=== PATIENT | female | born 1930 | race Caucasian/White ===

== ENCOUNTER 2017-12-29 10:24 | Emergency (ER) | payer MEDICAID ==
[~2017-12-29] VITALS: Ht 165.1 cm; Wt 68.0 kg
--- NOTE | 2017-12-29 10:39 | NUR ---
Dr Shanks at the bedside for MSE.
[2017-12-29 11:16] LABS: BASOPHILS % (AUTO) 0.4 % (0.0-2.0); EOSINOPHILS # (AUTO) 0.1 K/uL (0.0-0.7); HEMATOCRIT 40.9 % (31.2-41.9); HEMOGLOBIN 13.9 g/dL (10.9-14.3); LYMPHOCYTES # (AUTO) 0.9 K/uL (20.0-40.0); LYMPHOCYTES % (AUTO) 8.1 % (20.5-51.5); MEAN CORPUSCULAR HEMOGLOBIN 30.1 uug (24.7-32.8); MEAN CORPUSCULAR HGB CONC 34 g/dL (32.3-35.6); MEAN CORPUSCULAR VOLUME 88.8 fL (75.5-95.3); MONOCYTES # (AUTO) 0.6 K/uL (2.0-10.0); MONOCYTES % (AUTO) 5.5 % (0.0-11.0); NEUTROPHILS # (AUTO) 9.5 K/uL (1.8-8.9); PLATELET COUNT (AUTO) 231 K/uL (179-408); WHITE BLOOD COUNT (AUTO) 11.1 K/uL (3.8-11.8)
[2017-12-29 11:22] LABS: CARBON DIOXIDE 27 mmol/L (21-32); CHLORIDE 102 mmol/L (98-107); CREATININE 0.8 mg/dL (0.6-1.3); GLUCOSE 132 mg/dL (74-106); POTASSIUM 3.6 mmol/L (3.5-5.1); UREA NITROGEN, BLOOD 17 mg/dL (7-18)
[2017-12-29 11:23] LABS: ABG BASE EXCESS 2.3 mmol/L; ABG HCO3 25.4 mmol/L; ABG PCO2 34.8 mmHg (35.0-45.0); ABG PH 7.481 (7.350-7.450); ABG PO2 48.8 mmHg (75.0-100.0); ABG SITE RIGHT RADIAL; ABG TOTAL HEMOGLOBIN 13.8 G/dL (12.0-16.0); COHb 1.5 % (0.5-1.5); MetHb 0.1 % (0.0-1.5); O2Hb 86.2 % (94.0-97.0); VENT MODE ROOM AIR
--- NOTE | 2017-12-29 11:30 | NUR ---
Pt out of ER for CT.
[2017-12-29 11:34] LABS: ALANINE AMINOTRANSFERASE 31 U/L (14-59); ALKALINE PHOSPHATASE 93 U/L (50-136); ASPARTATE AMINOTRANSFERASE 28 U/L (15-37); BILIRUBIN,DIRECT 0.2 mg/dL (0.0-0.2); BILIRUBIN,TOTAL 1.2 mg/dL (0.2-1.0); TOTAL PROTEIN, SERUM 7.3 g/dL (6.4-8.2)
[2017-12-29] MEDS ORDERED: CEFTRIAXONE 1 G in IV DEXTROSE 5% 50 ML IV ONE (12:00)
[2017-12-29] MEDS ORDERED: AZITHROMYCIN IV 500 MG in IV DEXTROSE 5% 250 ML IV ONE (12:00)
--- NOTE | 2017-12-29 12:00 | NUR ---
PT'S GRANDSON REFUSED TO SIGN CONSENT TO IV CONTRAST, DR FLORES AWARE.
[2017-12-29] MEDS ORDERED: AZITHROMYCIN 500 MG VIAL IV ONE (12:07)
[2017-12-29] MEDS ORDERED: CEFTRIAXONE 1 G VIAL ONE (12:08)
--- NOTE | 2017-12-29 12:27 | NUR ---
DR FLORES SPOKE TO PT RE CTA AND VERBAL AND WRITTEN EXPLANATION PROVIDED TO MULTIPLE FAMILY MEMBERS. PT'S FAMILY MEMBER STATING THEY NEED LONGER TIME TO TALK ABOUT CTA AMONG THEMSELVES. PT IS RESTING IN BED.
--- NOTE | 2017-12-29 13:02 | NUR ---
PT'S GRANDSON SIGNED CONSENT FOR CT W/ IV CONTRAST, PLACED IN THE CHART.
[2017-12-29] MEDS ORDERED: IV NORMAL SALINE 100 ML ONE (13:06)
[2017-12-29] MEDS ORDERED: IOHEXOL 350 100 ML INFUS..BTL ONE (13:06)
[2017-12-29] MEDS ORDERED: SWABABLE VALVE TRANSFER SET EA MC ONE (13:06)
--- NOTE | 2017-12-29 13:20 | NUR ---
PT OUT OF ER FOR CTA.
--- NOTE | 2017-12-29 13:43 | NUR ---
PT BACK FROM CT, RESTING IN BED, FAMILY AT THE BEDSIDE.
--- NOTE | 2017-12-29 14:30 | NUR ---
Call placed to [facility], Dr. Belcher has been paged.
[2017-12-29] MEDS ORDERED: ALBUTEROL SULFATE 2.5 MG/3 ML NEBU NEB PRN (14:45)
[2017-12-29] MEDS ORDERED: ONDANSETRON 4 MG/2 ML VIAL IV PRN (14:45)
[2017-12-29] MEDS ORDERED: ACETAMINOPHEN 325 MG TABLET PO PRN (14:45)
[2017-12-29] MEDS ORDERED: IPRATROPIUM BROMIDE 0.5 MG/2.5 ML NEBU NEB PRN (14:45)
[2017-12-29] MEDS ORDERED: IPRATROPIUM BROMIDE 0.5 MG/2.5 ML NEBU NEB SCH (15:30)
[2017-12-29] MEDS ORDERED: ALBUTEROL SULFATE 2.5 MG/3 ML NEBU NEB SCH (15:30)
--- NOTE | 2017-12-29 15:43 | NUR ---
Patient and pt's family does not wish to proceed with medical care recommended by ( SANDRA ). Patient and pt's famiy given information related to possible complications, up to and including , which could occur as a result of leaving the hospital at this time. Patient and pt's family verbalize understanding of risks involved due to leaving against medical advice. Patient's son and grandson signed AMA form.
[2017-12-29] MEDS ORDERED: ASPIRIN EC 81 MG TABLET.DR PO SCH (15:45)
[2017-12-29] MEDS ORDERED: PANTOPRAZOLE SODIUM 40 MG TABLET.DR PO SCH (15:45)
[2017-12-29] MEDS ORDERED: AMLODIPINE 2.5 MG TABLET PO SCH (15:45)
[2017-12-29 15:46] VITALS: BP 140/80
[2017-12-30] MEDS ORDERED: CEFTRIAXONE 1 G in IV DEXTROSE 5% 50 ML IV SCH (12:00)
[2017-12-30] MEDS ORDERED: AZITHROMYCIN IV 500 MG in IV DEXTROSE 5% 250 ML IV SCH (12:30)
== END 2017-12-29 15:46 | disposition left against medical advice (07) ==
LOC: ER 10:24
DX: R09.02 Hypoxemia (principal); J18.9 Pneumonia, unspecified organism; I10 Essential (primary) hypertension; K44.9 Diaphragmatic hernia without obstruction or gangrene; K76.89 Other specified diseases of liver; M48.52XA Collapsed vertebra, not elsewhere classified, cervical region, initial encounter for fracture; W19.XXXA Unspecified fall, initial encounter; Y92.89 Other specified places as the place of occurrence of the external cause; Y93.89 Activity, other specified; Y99.8 Other external cause status
CPT/HCPCS: 36415; 36600; 70450; 71045; 71275; 72110; 80048; 80076; 83880; 84484; 85025; 85730; 87040; 93005; 96365; 96368; 99285; A4663; J0456; J0696; J3490 ×2; J7050; Q9967; 70030-TC

== ENCOUNTER 2017-12-31 15:34 | Inpatient (IN) | payer MEDICAID ==
[~2017-12-31] VITALS: Ht 152.4 cm; Wt 49.9 kg
[2017-12-31] MEDS ORDERED: CEFTRIAXONE 1 G in IV DEXTROSE 5% 50 ML IV ONE (17:15)
[2017-12-31] MEDS ORDERED: IV NORMAL SALINE 1000 ML BAG IV ONE (17:15)
[2017-12-31] MEDS ORDERED: AZITHROMYCIN IV 500 MG in IV DEXTROSE 5% 250 ML IV ONE (17:15)
[2017-12-31] MEDS ORDERED: CEFTRIAXONE 1 G VIAL ONE (17:33)
[2017-12-31 17:53] LABS: BASOPHILS % (AUTO) 0.5 % (0.0-2.0); EOSINOPHILS # (AUTO) 0.2 K/uL (0.0-0.7); EOSINOPHILS % (AUTO) 2.8 % (0.0-7.0); HEMOGLOBIN 13.3 g/dL (10.9-14.3); LYMPHOCYTES # (AUTO) 1.2 K/uL (20.0-40.0); LYMPHOCYTES % (AUTO) 15.6 % (20.5-51.5); MEAN CORPUSCULAR HGB CONC 34 g/dL (32.3-35.6); MEAN CORPUSCULAR VOLUME 87.9 fL (75.5-95.3); MONOCYTES # (AUTO) 0.9 K/uL (2.0-10.0); MONOCYTES % (AUTO) 11.6 % (0.0-11.0); NEUTROPHILS # (AUTO) 5.5 K/uL (1.8-8.9); NEUTROPHILS % (AUTO) 69.5 % (38.5-71.5); PLATELET COUNT (AUTO) 208 K/uL (179-408); RED BLOOD CELL COUNT(AUTO) 4.44 MIL/uL (3.63-4.92)
[2017-12-31 18:08] LABS: CARBON DIOXIDE 29 mmol/L (21-32); CHLORIDE 100 mmol/L (98-107); CREATININE 0.7 mg/dL (0.6-1.3); GLUCOSE 116 mg/dL (74-106); POTASSIUM 3.5 mmol/L (3.5-5.1); UREA NITROGEN, BLOOD 17 mg/dL (7-18)
[2017-12-31 18:21] LABS: ALANINE AMINOTRANSFERASE 29 U/L (14-59); ALKALINE PHOSPHATASE 82 U/L (50-136); ASPARTATE AMINOTRANSFERASE 26 U/L (15-37); BILIRUBIN,DIRECT 0.3 mg/dL (0.0-0.2); BILIRUBIN,TOTAL 1.5 mg/dL (0.2-1.0); TOTAL PROTEIN, SERUM 7.7 g/dL (6.4-8.2)
[2017-12-31] MEDS ORDERED: AZITHROMYCIN 500 MG VIAL IV ONE (18:38)
--- NOTE | 2017-12-31 19:44 | NUR ---
Patient's O2 Saturation 83%, placed patient on 2L O2 via nasal cannula. MD notified.
[2017-12-31] MEDS ORDERED: FUROSEMIDE 20 MG/2 ML VIAL IV ONE (20:15)
[2017-12-31] MEDS ORDERED: FUROSEMIDE 20 MG/2 ML VIAL ONE (20:20)
--- NOTE | 2017-12-31 20:25 | NUR ---
Dr. Grewal on panel call with Dr. Belcher.
[2017-12-31 20:56] LABS: *BILIRUBIN,URIN NEGATIVE (NEGATIVE); *BLOOD, URINE 2+ (NEGATIVE); *CLARITY,URINE SLIGHTLY CLOUDY (CLEAR); *COLOR,URINE YELLOW (YELLOW); *KETONES,URINE TRACE (NEGATIVE); *PROTEIN,URINE TRACE (NEGATIVE); *UROBILINOGEN,URINE 0.2 E.U./dl (NORMAL); LEUKOCYTE ESTERASE ,URINE NEGATIVE (NEGATIVE); NITRITE, URINE NEGATIVE (NEGATIVE); PH,URINE 5.5 (5.0-8.0); UGLUCOSE NEGATIVE (NEGATIVE)
[2017-12-31 21:07] LABS: BACTERIA,URINE NONE SEEN /HPF (NONE SEEN); SQUAMOUS EPITHELIAL CELL,UR FEW /HPF (NONE SEEN); WBC,URINE 0-3 /HPF (0-3)
--- NOTE | 2017-12-31 21:32 | NUR ---
Passed report to Fredy CRESPO Tele.
--- NOTE | 2017-12-31 21:32 | NUR ---
Erick collazo in [facility] - 12/31/17 at 2203 by ENID Passed report to Fredy.
--- NOTE | 2017-12-31 21:40 | NUR ---
NEW ADMIT FROM ER, ADMIT FOR CHF. PATIENT IS MAINLY SLOVENIAN SPEAKING, SHE DENIES PAIN OR ANY DISTRESS ON ASSESSMENT. PATIENT ON O2 SAT AT 95 %, NO SOB AT PRESENT. WILL CONTINUE TO MONITOR PATIENT
[2017-12-31 22:15] VITALS: BP 149/78
[2017-12-31] MEDS ORDERED: CARISOPRODOL 350 MG TABLET PO PRN (22:45)
[2017-12-31] MEDS ORDERED: ONDANSETRON 4 MG/2 ML VIAL IV PRN (22:45)
[2017-12-31] MEDS ORDERED: MORPHINE SULFATE 4 MG/1 ML DISP.SYRIN IV PRN (22:45)
[2017-12-31] MEDS ORDERED: ACETAMINOPHEN 325 MG TABLET PO PRN (22:45)
[2017-12-31] MEDS ORDERED: hydrALAZINE HCL 25 MG TABLET PO PRN (22:45)
[2017-12-31] MEDS ORDERED: ALBUTEROL SULFATE 2.5 MG/3 ML NEBU NEB PRN (22:45)
[2017-12-31] MEDS ORDERED: MAGNESIUM HYDROXIDE 30 ML LIQUID UDC PO PRN (22:45)
[2017-12-31] MEDS ORDERED: TEMAZEPAM 15 MG CAPSULE PO PRN (22:45)
[2017-12-31] MEDS ORDERED: LEVOFLOXACIN 500 MG/D5W 100 ML ONE (23:21)
[2017-12-31] MEDS ORDERED: LEVOFLOXACIN 500 MG/D5W 500 MG in PREMIXED 1 EACH IV ONE (23:30)
[2018-01-01] VITALS: BP 151/72
[2018-01-01 04:00] VITALS: BP 141/72
--- NOTE | 2018-01-01 06:42 | NUR ---
PATIENT SLEPT WELL THROUGH THE SHIFT. NO C/O PAIN OR RESP DISTRESS ON THIS SHIFT. VSS WITHIN PATIENT'S BASELINE. NO FURTHER CHANGES IN STATUS, CALL LIGHT LEFT WITHIN PATIENT'S REACH. PATIENT REFUSED A.M LABS TO BE DRAWN
--- NOTE | 2018-01-01 07:00 | NUR ---
Receive pt in bed awake, daughter by bedside. No SOB, pain, distress or discomfort at this time
[2018-01-01] MEDS: FUROSEMIDE 20 MG/2 ML VIAL IV SCH (08:13)
[2018-01-01] MEDS: AMLODIPINE 5 MG TABLET PO SCH (10:00)
[2018-01-01] MEDS: PANTOPRAZOLE SODIUM 40 MG TABLET.DR PO SCH (10:00)
--- NOTE | 2018-01-01 10:45 | NUR ---
Explained family about the ECHO procedure and CT scan that is pending. Family stated it was okay for both procedure to take place.
--- NOTE | 2018-01-01 11:02 | NUR ---
Family is by bedside. Both daughter and son were explained Protonix and Norvasc orders and family refused medication to be given. BP was 112/61 HR 72
--- NOTE | 2018-01-01 11:06 | NUR ---
FINANCE ACC[employer]ING [employer] consultation taking place with both daughter and son by bedside
[2018-01-01 11:34] VITALS: BP 112/61
[2018-01-01] MEDS ORDERED: ALBUTEROL SULFATE 2.5 MG/3 ML NEBU NEB PRN (12:15)
[2018-01-01] MEDS ORDERED: IPRATROPIUM BROMIDE 0.5 MG/2.5 ML NEBU NEB PRN (12:15)
--- NOTE | 2018-01-01 12:15 | NUR ---
Received call from FACSIMILE OPERATOR asking if the pt refused labs this morning. Lab was called and it was verified that pt had refused labs this morning. Asked lab to please send senior energy analyst and retry again
--- NOTE | 2018-01-01 12:40 | NUR ---
Hand Compositor tried to draw labs and family refused. Charge nurse explained the family that labs were needed and ordered by MARKETING SYSTEMS ANALYST. Family refused labs to be drawn again
--- NOTE | 2018-01-01 14:15 | NUR ---
The patient had breakfast and lunch.Ultrasound abdomen is not done. CHERIE Suazo noted.
--- NOTE | 2018-01-01 14:34 | NUR ---
During rounds, family asked about the plan for their mother's hospital stay. Informed pt about the plans for procedures and tests. Son states that this is all new to their mother since she has only been here for one month and that everything is new and puts stress on their mother. Family asked me to ask CRAB FISHERMAN if pt can be discharge CRAB FISHERMAN aware and states that pt cannot be discharge today and has a filament tester consult tomorrow. All information relayed to the family. Family states that they only want the CT scan done and does not want the pt to have tomorrow's abdomen procedure. Son states that after CT scan the family will sign AMA papers to take the pt home this afternoon
--- NOTE | 2018-01-01 15:15 | NUR ---
Family refused ABG gases procedure
[2018-01-01] MEDS: IPRATROPIUM BROMIDE 0.5 MG/2.5 ML NEBU NEB SCH ×2 (15:17→19:48)
[2018-01-01] MEDS: ALBUTEROL SULFATE 2.5 MG/3 ML NEBU NEB SCH ×2 (15:17→19:48)
[2018-01-01 15:34] VITALS: BP 131/70
--- NOTE | 2018-01-01 17:54 | NUR ---
Pt wanted to know if tele can be removed, PAPER BAG MAKER stated not as of right now. Family is aware that the results of the CT scan of the spine are available unfortunately the results can only be read by an PAPER BAG MAKER or doctor. Family is also aware that if they leave AMA, no prescriptions are ordered and if any discharge papers or medical recorders have to be signed for with an authorization for use or disclosure of health information
--- NOTE | 2018-01-01 19:00 | NUR ---
RECEIVED IN BED, NO SOB NO CHEST PAIN, RYTHM SINUS RYTHM, OXYGEN SAT WNL, CALL LIGHT WITHIN REACH.
--- NOTE | 2018-01-01 19:27 | NUR ---
Family has decided to stay till tomorrow. Pt has no s/s of pain, distress, discomfort or SOB. Family by bedside.
[2018-01-01 20:00] VITALS: BP 127/69
[2018-01-01] MEDS ORDERED: DOCUSATE SODIUM 100 MG CAPSULE PO SCH (21:00)
[2018-01-01] MEDS ORDERED: LEVOFLOXACIN 250MG /D5W 250 MG in PREMIXED 1 EACH IV SCH (22:00)
[2018-01-02 00:26] VITALS: BP 147/73
[2018-01-02] MEDS: ALBUTEROL SULFATE 2.5 MG/3 ML NEBU NEB SCH ×3 (01:10→12:52)
[2018-01-02] MEDS: IPRATROPIUM BROMIDE 0.5 MG/2.5 ML NEBU NEB SCH ×3 (01:10→12:52)
[2018-01-02 04:00] VITALS: BP 141/62
[2018-01-02] MEDS: PANTOPRAZOLE SODIUM 40 MG TABLET.DR PO SCH (06:32)
--- NOTE | 2018-01-02 06:33 | NUR ---
PATIENT REFUSED MEDICATION AND LAB WORKS.
--- NOTE | 2018-01-02 07:10 | NUR ---
RECEIVED REPORT FROM REAL ESTATE APPRAISER NURSE, PATIENT IN BED AWAKE, NO DISTRESS NOTED AT THIS TIME, DAUGHTER AT BEDSIDE. REFUSAL OF LABS EXPLAINED BY DAUGHTER BUT WAS CONVINCED TO DO THE LABS IN ORDER FOR THE DOCTOR TO PROVIDE APPROPRIATE CARE. PATIENT AND DAUGHTER FINALLY AGREED.
--- NOTE | 2018-01-02 08:00 | NUR ---
PATIENT KEPT NPO TO COMPLETE ABDOMINAL ULTRASOUND.
[2018-01-02] MEDS: FUROSEMIDE 20 MG/2 ML VIAL IV SCH (08:26)
[2018-01-02] MEDS: AMLODIPINE 5 MG TABLET PO SCH (08:27)
[2018-01-02] MEDS ORDERED: TEMAZEPAM 7.5 MG CAPSULE PO PRN (09:00)
[2018-01-02 09:25] LABS: ALANINE AMINOTRANSFERASE 21 U/L (14-59); ALKALINE PHOSPHATASE 68 U/L (50-136); ASPARTATE AMINOTRANSFERASE 21 U/L (15-37); BILIRUBIN,TOTAL 1.4 mg/dL (0.2-1.0); CARBON DIOXIDE 28 mmol/L (21-32); CHLORIDE 100 mmol/L (98-107); CREATININE 0.8 mg/dL (0.6-1.3); GLUCOSE 124 mg/dL (74-106); PHOSPHOROUS 4.1 mg/dL (2.5-4.9); POTASSIUM 2.9 mmol/L (3.5-5.1); TOTAL PROTEIN, SERUM 7.3 g/dL (6.4-8.2); UREA NITROGEN, BLOOD 21 mg/dL (7-18)
[2018-01-02 09:49] LABS: BASOPHILS % (AUTO) 0.3 % (0.0-2.0); EOSINOPHILS # (AUTO) 0.3 K/uL (0.0-0.7); EOSINOPHILS % (AUTO) 3.7 % (0.0-7.0); HEMATOCRIT 40.1 % (31.2-41.9); HEMOGLOBIN 13.4 g/dL (10.9-14.3); LYMPHOCYTES # (AUTO) 1.4 K/uL (20.0-40.0); LYMPHOCYTES % (AUTO) 20.5 % (20.5-51.5); MEAN CORPUSCULAR HEMOGLOBIN 29.7 uug (24.7-32.8); MEAN CORPUSCULAR HGB CONC 34 g/dL (32.3-35.6); MEAN CORPUSCULAR VOLUME 88.5 fL (75.5-95.3); MONOCYTES # (AUTO) 0.9 K/uL (2.0-10.0); MONOCYTES % (AUTO) 13.2 % (0.0-11.0); NEUTROPHILS # (AUTO) 4.3 K/uL (1.8-8.9); NEUTROPHILS % (AUTO) 62.3 % (38.5-71.5); PLATELET COUNT (AUTO) 213 K/uL (179-408); RED BLOOD CELL COUNT(AUTO) 4.53 MIL/uL (3.63-4.92); WHITE BLOOD COUNT (AUTO) 6.9 K/uL (3.8-11.8)
[2018-01-02] MEDS ORDERED: POTASSIUM CHLORIDE 20 MEQ TAB.PRT.SR PO ONE (10:30)
[2018-01-02 11:19] VITALS: BP 124/60
--- NOTE | 2018-01-02 11:30 | NUR ---
ABDOMINAL ULTRASOUND COMPLETED.
--- NOTE | 2018-01-02 14:00 | NUR ---
Patient seen by Dr. Hansen.
[2018-01-02 16:11] VITALS: BP 119/52
--- NOTE | 2018-01-02 17:45 | NUR ---
Patient seen by Dr. Renteria
--- NOTE | 2018-01-02 17:56 | NUR ---
Doreen contacted as patients family wants to know if they can be discharged since they have been cleared by cardiology and ortho. Doreen will complete discharge this evening. Currently patient is in bed, no distress noted, bed in low position, side rails up x2.
[2018-01-02] MEDS ORDERED: ACET325T53 PO (17:59)
[2018-01-02] MEDS ORDERED: LEVO500T90 PO (17:59)
[2018-01-02] MEDS ORDERED: LACT1CAP59 PO (17:59)
[2018-01-02] MEDS ORDERED: AMLO5TAB2 PO (17:59)
--- NOTE | 2018-01-02 18:40 | NUR ---
NOTIFIED PHARMACY OF PATIENTS DISCHARGE WITH NEW PRESCRIPTIONS
--- NOTE | 2018-01-02 18:51 | NUR ---
PATIENT WAS GIVEN DISCHARGE INSTRUCTIONS, IV REMOVED, AND PATIENT WAS TAKEN DOWN TO DISCHARGE AREA TO BE MET BY SON ZAKIA. NO DISTRESS NOTED AT THE TIME OF DISCHARGE. PATIENTS SON DECLINED APPOINTMENT FOR CHF FOLLOW UP THEY HAVE JUST GOTTEN A NEW DOCTOR AND WILL FOLLOW UP WITH HIM.
[2018-01-03] MEDS ORDERED: POTASSIUM CHLORIDE 10 MEQ TAB.PRT.SR PO SCH (09:00)
== END 2018-01-02 18:51 | disposition home or self-care (01) | DRG 194 ==
LOC: ER 15:35 → TELE 21:38
PROVIDERS: ADMIT Internal Medicine; ATTEND Internal Medicine
DX: I11.0 Hypertensive heart disease with heart failure (principal); J96.01 Acute respiratory failure with hypoxia; J18.9 Pneumonia, unspecified organism; S32.029A Unspecified fracture of second lumbar vertebra, initial encounter for closed fracture; J84.10 Pulmonary fibrosis, unspecified; I08.3 Combined rheumatic disorders of mitral, aortic and tricuspid valves; I50.33 Acute on chronic diastolic (congestive) heart failure; N28.1 Cyst of kidney, acquired; K44.9 Diaphragmatic hernia without obstruction or gangrene; W19.XXXA Unspecified fall, initial encounter; Y92.89 Other specified places as the place of occurrence of the external cause; M47.896 Other spondylosis, lumbar region; R59.0 Localized enlarged lymph nodes; M48.56XD Collapsed vertebra, not elsewhere classified, lumbar region, subsequent encounter for fracture with routine healing; E87.6 Hypokalemia; E80.6 Other disorders of bilirubin metabolism
CPT/HCPCS: 36415; 70030-TC; 71045; 72131; 76700; 83605; 83735; 84100; 85025; 85730; 87040; 87086; 93005; 93307; 94640; 94664; A4663; J0456; J0696; J1940; J1956; J3490; J3590; J7030; J7060